=== PATIENT | male | born 1980 | race Caucasian/White ===

== ENCOUNTER 2023-07-18 23:41 | Emergency (ER) | payer BC, MEDICAID ==
[~2023-07-18] VITALS: Ht 172.7 cm; Wt 77.1 kg
[2023-07-18 23:49] VITALS: BP 116/60; PULSE 74; RESP 19; TEMP 98.8; O2SAT 99
[2023-07-19 00:15] VITALS: O2SAT 99
[2023-07-19] MEDS ORDERED: MORPHINE SULFATE 4 MG/ML SYR IVP ONE ×2 (00:35→01:45)
[2023-07-19] MEDS ORDERED: PIPERACILLIN/TAZOBACTAM 3.375 GM in DEXTROSE 5% 50 ML IV ONE (00:35)
[2023-07-19] MEDS ORDERED: NACL 0.9% 1,000 ML IV ONE (00:35)
[2023-07-19] MEDS ORDERED: PIPERACILLIN/TAZOBACTAM 3.375 GM VIAL IV ONE (00:43)
[2023-07-19 01:13] LABS: BASOPHILS # (AUTO) 0.1 K/uL (0.00-0.22); BASOPHILS % (AUTO) 0.6 % (0.0-2.0); EOSINOPHILS # (AUTO) 0.4 K/uL (0-0.4); EOSINOPHILS % (AUTO) 3.9 % (0.0-4.0); HEMATOCRIT 40.6 % (36-52); HEMOGLOBIN 13.3 g/dL (12.0-18.0); LYMPHOCYTES # (AUTO) 2.1 K/uL (2.0-11.5); LYMPHOCYTES % (AUTO) 21.7 % (20.5-51.1); MEAN CORPUSCULAR HEMOGLOBIN 29 pg (27-31); MEAN CORPUSCULAR HGB CONC 33 g/dL (33-37); MEAN CORPUSCULAR VOLUME 86.7 fL (80-94); MONOCYTES # (AUTO) 0.9 K/uL (0.8-1.0); MONOCYTES % (AUTO) 8.7 % (1.7-9.3); NEUTROPHILS # (AUTO) 6.4 K/uL (1.8-7.7); NEUTROPHILS % (AUTO) 65.1 % (42.2-75.2); PLATELET COUNT (AUTO) 365 K/uL (140-450); RED BLOOD CELL COUNT(AUTO) 4.68 MIL/uL (4.20-6.10); RED CELL DISTRIBUTION WIDTH 15.3 % (11.6-13.7); WHITE BLOOD COUNT (AUTO) 9.9 K/uL (4.8-10.8)
[2023-07-19 01:22] LABS: ANION GAP 9.1 (8-16); CALCIUM 8.2 mg/dL (8.5-10.1); CREATININE 0.8 mg/dL (0.6-1.3); POTASSIUM 4.1 mmol/L (3.5-5.1)
[2023-07-19] MEDS ORDERED: NAPR-54 PO (03:29)
[2023-07-19] MEDS ORDERED: CIPR500T4 PO (03:29)
== END 2023-07-19 03:34 | disposition home or self-care (01) ==
LOC: MED 23:41
DX: N45.1 Epididymitis (principal); Z79.899 Other long term (current) drug therapy
CPT/HCPCS: 36415; 76870; 80048; 83605; 85025; 87040; 96365; 96375; 96376; 99285; J2270; J2543; J7030; Q0092

== ENCOUNTER 2023-07-26 17:00 | Emergency (ER) | payer BC, MEDICAID ==
[~2023-07-26] VITALS: Ht 165.1 cm; Wt 77.1 kg
[~2023-07-26 17:00] MED LIST: CIPR500T4 PO; NAPR-54 PO
[2023-07-26 17:09] VITALS: BP 126/78; PULSE 102; RESP 22; TEMP 98; O2SAT 99
[2023-07-26] MEDS ORDERED: CEPH-588 PO (18:38)
== END 2023-07-26 19:22 | disposition home or self-care (01) ==
LOC: MED 17:00
DX: N39.0 Urinary tract infection, site not specified (principal); R33.9 Retention of urine, unspecified; Z79.899 Other long term (current) drug therapy
CPT/HCPCS: 51702; 81002; 87086; 99284

== ENCOUNTER 2023-07-29 09:42 | Emergency (ER) | payer BC, MEDICAID ==
[~2023-07-29] VITALS: Ht 172.7 cm; Wt 79.4 kg
[~2023-07-29 09:42] MED LIST changes: +CEPH-588 PO
[2023-07-29 10:12] VITALS: BP 129/87; PULSE 84; RESP 16; TEMP 98.7; O2SAT 100
[2023-07-29] MEDS ORDERED: NITR100C7 PO (13:52)
== END 2023-07-29 10:29 | disposition home or self-care (01) ==
LOC: MED 09:42
DX: Z46.6 Encounter for fitting and adjustment of urinary device (principal); Z79.2 Long term (current) use of antibiotics; Z79.1 Long term (current) use of non-steroidal anti-inflammatories (NSAID)
CPT/HCPCS: 99281

== ENCOUNTER 2023-10-10 02:19 | Emergency (ER) | payer BC, MEDICAID ==
[~2023-10-10] VITALS: Ht 172.7 cm; Wt 86.2 kg
[~2023-10-10 02:19] MED LIST changes: +NITR100C7 PO
[2023-10-10 02:30] VITALS: BP 135/89; PULSE 110; RESP 18; TEMP 97; O2SAT 98
[2023-10-10 03:45] VITALS: BP 135/89; PULSE 98; RESP 18; TEMP 97; O2SAT 98
== END 2023-10-10 03:45 | disposition home or self-care (01) ==
LOC: MED 02:19
DX: R33.9 Retention of urine, unspecified (principal); N31.2 Flaccid neuropathic bladder, not elsewhere classified; Z79.899 Other long term (current) drug therapy
CPT/HCPCS: 51702; 99284

== ENCOUNTER 2023-10-11 11:58 | Emergency (ER) | payer BC, MEDICAID ==
[~2023-10-11] VITALS: Ht 172.7 cm; Wt 78.9 kg
[2023-10-11 12:14] VITALS: BP 117/75; PULSE 71; RESP 18; TEMP 97.7; O2SAT 97
== END 2023-10-11 13:20 | disposition home or self-care (01) ==
LOC: MED 11:58
DX: R33.9 Retention of urine, unspecified (principal); Z09 Encounter for follow-up examination after completed treatment for conditions other than malignant neoplasm; Z79.899 Other long term (current) drug therapy
CPT/HCPCS: 99281

== ENCOUNTER 2023-10-31 23:05 | Emergency (ER) | payer BC, MEDICAID ==
[~2023-10-31] VITALS: Ht 172.7 cm; Wt 81.6 kg
[2023-10-31 23:18] VITALS: BP 127/102; PULSE 86; RESP 20; TEMP 97.2; O2SAT 95
[2023-11-01 00:30] LABS: APPEARANCE,URINE CLOUDY (CLEAR); BILIRUBIN,URINE NEGATIVE (NEGATIVE); BLOOD, URINE 3+ (NEGATIVE); LEUKOCYTE ESTERASE ,URINE 3+ (NEGATIVE); NITRITE, URINE NEGATIVE (NEGATIVE); PH,URINE 7.5 (5.0-9.0); PROTEIN,URINE 2+ (NEGATIVE); UGLUCOSE NEGATIVE (NEGATIVE); UROBILINOGEN,URINE 0.2 EU/dL (0.2 - 1)
[2023-11-01 00:51] LABS: COLOR,URINE SLIGHT BLOODY (YELLOW)
[2023-11-01 00:54] LABS: BACTERIA,URINE 3+ /HPF (None Seen); RBC,URINE 20-50 /HPF (0-5); SQUAMOUS EPITHELIAL CELL,UR 0-3 (FEW) /LPF (0-3 (FEW)); WBC,URINE TOO MANY TO COUNT /HPF (0-5)
[2023-11-01 01:09] LABS: BASOPHILS % (AUTO) 0.3 % (0.0-2.0); EOSINOPHILS # (AUTO) 0.1 K/uL (0-0.4); EOSINOPHILS % (AUTO) 0.4 % (0.0-4.0); HEMATOCRIT 45.5 % (36-52); HEMOGLOBIN 14.9 g/dL (12.0-18.0); LYMPHOCYTES # (AUTO) 1.2 K/uL (2.0-11.5); LYMPHOCYTES % (AUTO) 7.7 % (20.5-51.1); MEAN CORPUSCULAR HEMOGLOBIN 29 pg (27-31); MEAN CORPUSCULAR HGB CONC 33 g/dL (33-37); MEAN CORPUSCULAR VOLUME 87.6 fL (80-94); MONOCYTES # (AUTO) 0.8 K/uL (0.8-1.0); MONOCYTES % (AUTO) 5.6 % (1.7-9.3); NEUTROPHILS # (AUTO) 12.9 K/uL (1.8-7.7); PLATELET COUNT (AUTO) 327 K/uL (140-450); RED BLOOD CELL COUNT(AUTO) 5.19 MIL/uL (4.20-6.10); RED CELL DISTRIBUTION WIDTH 13.9 % (11.6-13.7); WHITE BLOOD COUNT (AUTO) 15.1 K/uL (4.8-10.8)
[2023-11-01 01:23] LABS: ANION GAP 8.1 (8-16); CALCIUM 9.3 mg/dL (8.5-10.1); CARBON DIOXIDE 30.4 mmol/L (21-32); CREATININE 0.9 mg/dL (0.6-1.3); POTASSIUM 3.5 mmol/L (3.5-5.1)
[2023-11-01] MEDS ORDERED: AMOX1TAB8 PO (01:41)
[2023-11-01] MEDS ORDERED: cefTRIAXone 1,000 MG VIAL ONE (01:45)
[2023-11-01] MEDS ORDERED: LIDOCAINE MPF 1% 5 ML ONE (01:45)
[2023-11-01] MEDS: cefTRIAXone 1,000 MG in LIDOCAINE MPF 1% 2.1 ML IM ONE (01:56)
== END 2023-11-01 01:55 | disposition home or self-care (01) ==
LOC: MED 23:05
DX: N39.0 Urinary tract infection, site not specified (principal); R33.9 Retention of urine, unspecified; Z79.899 Other long term (current) drug therapy
CPT/HCPCS: 36415; 51702; 80048; 81001; 85025; 87086; 87491; 96372; 99284; J0696; J2001

== ENCOUNTER 2023-11-04 16:58 | Emergency (ER) | payer BC, MEDICAID ==
[~2023-11-04] VITALS: Ht 172.7 cm; Wt 81.2 kg
[~2023-11-04 16:58] MED LIST changes: +AMOX1TAB8 PO
[2023-11-04 17:50] VITALS: BP 139/77; PULSE 83; RESP 18; TEMP 98.1; O2SAT 98
== END 2023-11-04 18:41 | disposition home or self-care (01) ==
LOC: MED 16:58
DX: Z00.8 Encounter for other general examination (principal); T83.098A Other mechanical complication of other urinary catheter, initial encounter; Z79.899 Other long term (current) drug therapy
CPT/HCPCS: 99281

== ENCOUNTER 2023-11-30 08:49 | Emergency (ER) | payer BC, MEDICAID ==
[~2023-11-30] VITALS: Ht 172.7 cm; Wt 79.4 kg
[2023-11-30 09:06] VITALS: BP 120/71; PULSE 65; RESP 18; TEMP 97.2; O2SAT 98
[2023-11-30 11:22] LABS: BILIRUBIN,URINE NEGATIVE (NEGATIVE); COLOR,URINE YELLOW (YELLOW); LEUKOCYTE ESTERASE ,URINE 3+ (NEGATIVE); NITRITE, URINE POSITIVE (NEGATIVE); PH,URINE 7.5 (5.0-9.0); PROTEIN,URINE 2+ (NEGATIVE); UGLUCOSE NEGATIVE (NEGATIVE); UROBILINOGEN,URINE 0.2 EU/dL (0.2 - 1)
[2023-11-30 11:30] LABS: APPEARANCE,URINE CLOUDY (CLEAR)
[2023-11-30 11:33] LABS: BACTERIA,URINE 1+ /HPF (None Seen)
[2023-11-30 11:34] LABS: BLOOD, URINE 1+ (NEGATIVE); CALCIUM OXALATE CRYSTALS,UR 0-10 /HPF (None Seen); SQUAMOUS EPITHELIAL CELL,UR 0-3 (FEW) /LPF (0-3 (FEW))
[2023-11-30 11:35] LABS: WBC,URINE 20-60 /HPF (0-5)
[2023-11-30] MEDS ORDERED: CEPH-588 PO (11:50)
[2023-11-30 12:16] VITALS: BP 112/61; PULSE 50; RESP 18; O2SAT 99
[2023-12-03] MEDS ORDERED: NITR100C1 PO (13:09)
== END 2023-11-30 12:16 | disposition home or self-care (01) ==
LOC: MED 08:49
DX: T83.091A Other mechanical complication of indwelling urethral catheter, initial encounter (principal); N39.0 Urinary tract infection, site not specified; Z79.1 Long term (current) use of non-steroidal anti-inflammatories (NSAID); Z79.899 Other long term (current) drug therapy
CPT/HCPCS: 51702; 81001; 87086; 87186; 99284

== ENCOUNTER 2023-12-03 19:28 | Emergency (ER) | payer MEDICAID ==
[~2023-12-03 19:28] MED LIST changes: +NITR100C1 PO
== END 2023-12-03 20:20 | disposition left against medical advice (07) ==
LOC: MED 19:28
DX: Z00.8 Encounter for other general examination (principal); T85.9XXA Unspecified complication of internal prosthetic device, implant and graft, initial encounter; Z53.21 Procedure and treatment not carried out due to patient leaving prior to being seen by health care provider

== ENCOUNTER 2023-12-17 19:56 | Emergency (ER) | payer MEDICAID ==
[~2023-12-17] VITALS: Ht 172.7 cm; Wt 81.2 kg
[~2023-12-17 19:56] MED LIST changes: +NAPR-337 PO; -NAPR-54 PO
[2023-12-17 20:06] VITALS: BP 129/82; PULSE 91; RESP 16; TEMP 98.2; O2SAT 98
[2023-12-17 20:07] VITALS: BP 128/80; PULSE 82; RESP 16
[2023-12-17 20:12] VITALS: O2SAT 96
[2023-12-17 21:39] LABS: BILIRUBIN,URINE NEGATIVE (NEGATIVE); BLOOD, URINE 2+ (NEGATIVE); COLOR,URINE YELLOW (YELLOW); LEUKOCYTE ESTERASE ,URINE 1+ (NEGATIVE); NITRITE, URINE POSITIVE (NEGATIVE); PROTEIN,URINE 2+ (NEGATIVE); UGLUCOSE NEGATIVE (NEGATIVE); UROBILINOGEN,URINE 0.2 EU/dL (0.2 - 1)
[2023-12-17 21:43] LABS: APPEARANCE,URINE SLIGHTLY CLOUDY (CLEAR)
[2023-12-17 21:46] LABS: BACTERIA,URINE 2+ /HPF (None Seen); MUCUS,URINE None Seen /LPF (None Seen); SQUAMOUS EPITHELIAL CELL,UR 0-3 (FEW) /LPF (0-3 (FEW)); WBC,URINE 0-5 /HPF (0-5)
[2023-12-17] MEDS ORDERED: NITR100C7 PO (21:50)
== END 2023-12-17 21:57 | disposition home or self-care (01) ==
LOC: MED 19:56
DX: R33.9 Retention of urine, unspecified (principal); N39.0 Urinary tract infection, site not specified; Z79.899 Other long term (current) drug therapy
CPT/HCPCS: 51702; 81001; 87086; 99284